=== PATIENT | male | born 1965 | race Caucasian/White ===

== ENCOUNTER 2018-06-08 10:29 | Emergency (ER) | payer OTHER, SELFPAY ==
[2018-06-08] VITALS (25 sets, daily range): BP systolic 113–125; BP diastolic 71–85; PULSE 67–88; RESP 11–26; TEMP 36.7; O2SAT 83–96
--- NOTE | 2018-06-08 10:41 | W.ED.GENAD ---
Discharge Plan Disposition Patient Disposition: AGAINST MEDICAL ADVICE Condition: Stable Discharge Details Chief Complaint: OD/Poison Clinical Impression: Opiate overdose Primary Care Provider: Salome Og ED Provider: Sharon Clark Home Meds and New Rx's Prescriptions: Continue lamotrigine [Lamictal] 25 MG tablet 25 mg PO DAILY RF: 0 gabapentin 300 MG capsule 350 mg PO BID RF: 0 carisoprodol 350 MG tablet 350 mg PO DAILY PRNRF: 0 methadone [Dolophine] 10 MG tablet 90 mg PO DAILY RF: 0 quetiapine [Seroquel] 300 MG tablet 1 tab PO HS RF: 0 venlafaxine 25 MG tablet 3 tab PO DAILY RF: 0 Discharge Instructions Instructions: Narcotic Abuse (ED) Additional Instructions: Please refrain from abusing opioid medication as you can from stopping breathing. Follow-up with your primary care doctor at the [place] within the next week. Return immediately to the emergency department any worsening or new concerning symptoms. Discharge Data Discharge Physician: Sharon Clark Medical Decision Making 52-year-old male with a history of narcotic drug use who presents for bradypnea after fentanyl overdose this morning. No report of respiratory arrest. Patient was not given Narcan per EMS. Patient was assisted with ventilation by bag valve mask. Patient was noted to have sats in the 80s which increased to 90s on nasal cannula oxygen per EMS. Patient arrived to ED drowsy but arousable and oriented x3 and able to answer questions. He remains persistently drowsy but arousable. O2 sat 88% on room air. Patient placed on 2 L nasal cannula and O2 sat 96%. No evidence of trauma. Patient able to follow commands. Remainder vitals within normal limits. Will continue to hold on Narcan at this time as respiratory rate within normal limits. Will continue to observe until more alert, will check labs, EKG and chest x-ray and give Narcan if needed. EKG notes a rate of 74, sinus, no acute ST elevation or depression, QTc 450, QRS 98. Labs and imaging reviewed and negative. Chest x-ray negative. 1220 --patient observed now for almost 2 hours, and respiratory rate on O2 sat 2 L 96%, respiratory rate ranges between 9 and 14. Patient taken off O2 and sats between 90 and 92%, respiratory rate between 9 and 12. Remainder vitals within normal limits. Will give a 0.1 mg dose of Narcan. 1310 -- Pt now awake and alert and sitting on edge of stretcher and requesting to leave. Patient appears irritated and is requesting his IV line be taken out. Discussed with patient that the risk of return of respiratory depression is possible if the Narcan wears off and we would want to observe for a little while longer but he is refusing to stay. The risks of and disability due to respiratory depression explained and patient fully understands and demonstrates capacity make decisions. AMA form signed. Patient ambulated easily out of the emergency department. His friend Jenni who is the landlord where he lives is on her way to supervisor picking crew pt. HPI General Mode of arrival: ambulatory. Date/Time Provider Initiated Documentation: 06/08/18 10:39. Limitations to Documentation: no limitations. Information obtained by: patient. HPI Narrative: Patient is a 52-year-old male with a history of previous narcotic drug use who presented for hypoventilation after snorting fentanyl this morning. Patient currently resides at a care bed and was noted by staff there to be bradypneic. EMS was called and gave patient assisted ventilation with BVM, and no Narcan was given. Patient states he snorted fentanyl this morning due to his chronic neck and back pain. He denies any acute injury. Patient denies any other drug use. Past medical history: Hypertension, hyperlipidemia, chronic neck and back pain, TBI, seizures Surgical history: Hernia repair, right fifth finger amputation Social history: Smokes tobacco, narcotic drug use, denies alcohol Medications: Unknown, followed at the [facility], will obtain list Allergies: None PCP: [facility] Related Data Home Medications Medication Instructions Recorded Confirmed carisoprodol 350 mg PO DAILY PRN 05/03/13 02/21/18 gabapentin 350 mg PO BID 05/03/13 02/21/18 lamotrigine [Lamictal] 25 mg PO DAILY 05/03/13 02/21/18 methadone [Dolophine] 90 mg PO DAILY 02/20/18 02/21/18 quetiapine [Seroquel] 1 tab PO HS 02/20/18 02/21/18 venlafaxine 3 tab PO DAILY 02/20/18 02/21/18 Allergies Allergy/AdvReac Type Severity Reaction Status Date / Time No Known Allergies Allergy Unverified 02/21/18 20:05 General Stated Complaint: OD/Poison GONZALEZ: 2 Review of Systems Review of Systems All systems reviewed & are unremarkable except as noted in HPI and below Constitutional Reports as per HPI, Denies chills and Denies fever(s) Eyes Denies blurry vision ENT Denies dizziness, Denies sore throat and Denies throat swelling Cardiovascular Denies chest pain and Denies dyspnea Respiratory Denies dyspnea Gastrointestinal Denies abdominal pain, Denies diarrhea and Denies vomiting Genitourinary Denies hematuria and Denies dysuria Musculoskeletal Denies back pain and Denies numbness Integumentary/Breasts Denies lesions and Denies rash Neurologic Denies dizziness and Denies numbness Allergic/Immunologic Denies throat swelling PFSH Social History Smoking/Tobacco Use Status: Current every day Exam Const General: cooperative and no acute distress Orientation: oriented x3 and other (drowsy but arousable) HENSD Head: normal to inspection Ears: hearing grossly normal bilaterally, external ears normal and TM's normal bilaterally General nose exam: external nose normal Face and sinus: normal facial exam Mouth: moist mucous membranes abnormal Teeth and gingiva: poor dentition Eyes General: appearance normal, both eyes and all related structures Eyelids: eyelids normal Pupils: PERRL EOM: EOM intact bilaterally Neck Neck: normal visual inspection Lymphatic: no lymphadenopathy noted Chest Chest: normal inspection of the chest Resp Effort & Inspection: normal respiratory effort and able to speak in complete sentences Auscultation: clear to auscultation bilaterally Cardio Rate: regular rate Rhythm: regular rhythm GI Inspection: normal to inspection Palpation: soft, not firm, no guarding, no hepatosplenomegaly, no masses and nontender Auscultation: normal bowel sounds Skin General skin exam: no rashes or lesions noted Neuro General: alert and awake Cognition: normal cognition Speech: speech normal Gait: normal gait Motor: muscle tone normal throughout Sensory Exam: no sensory deficits noted Extrem General: normal to inspection, full ROM, normal capillary refill, no edema and other Psych Appearance: grossly normal Mental Status: mental status grossly normal Speech and Movement: speech and movement normal Affect: normal affect Thought Process: normal Course Vital Signs Temperature 98.1 F 06/08/18 10:26 Pulse 88 06/08/18 10:26 Respiratory Rate 16 06/08/18 10:26 Blood Pressure 116/79 06/08/18 10:26 Pulse Oximetry 91 L 06/08/18 10:26 Temperature 98.1 F 06/08/18 10:26 Temperature Source Temporal Artery Scan 06/08/18 10:26 Pulse 88 06/08/18 10:26 Respiratory Rate 16 06/08/18 10:26 Respiratory Effort Non-Labored 06/08/18 10:30 Blood Pressure 116/79 06/08/18 10:26 Pulse Oximetry 91 L 06/08/18 10:26 Oxygen Delivery Method Nasal Cannula 06/08/18 10:26 Oxygen Flow Rate 6 06/08/18 10:26 Pain Level 0 06/08/18 10:26
--- NOTE | 2018-06-08 10:49 | ED.GENADUL_ITS ---
Discharge Plan Disposition Patient Disposition: AGAINST MEDICAL ADVICE Condition: Stable Discharge Details Chief Complaint: OD/Poison Clinical Impression: Opiate overdose Primary Care Provider: Salome Og ED Provider: Sharon Clark Home Meds and New Rx's Prescriptions: Continue lamotrigine [Lamictal] 25 MG tablet 25 mg PO DAILY RF: 0 gabapentin 300 MG capsule 350 mg PO BID RF: 0 carisoprodol 350 MG tablet 350 mg PO DAILY PRNRF: 0 methadone [Dolophine] 10 MG tablet 90 mg PO DAILY RF: 0 quetiapine [Seroquel] 300 MG tablet 1 tab PO HS RF: 0 venlafaxine 25 MG tablet 3 tab PO DAILY RF: 0 Discharge Instructions Instructions: Narcotic Abuse (ED) Additional Instructions: Please refrain from abusing opioid medication as you can from stopping breathing. Follow-up with your primary care doctor at the [place] within the next week. Return immediately to the emergency department any worsening or new concerning symptoms. Discharge Data Discharge Physician: Sharon Clark Medical Decision Making 52-year-old male with a history of narcotic drug use who presents for bradypnea after fentanyl overdose this morning. No report of respiratory arrest. Patient was not given Narcan per EMS. Patient was assisted with ventilation by bag valve mask. Patient was noted to have sats in the 80s which increased to 90s on nasal cannula oxygen per EMS. Patient arrived to ED drowsy but arousable and oriented x3 and able to answer questions. He remains persistently drowsy but arousable. O2 sat 88% on room air. Patient placed on 2 L nasal cannula and O2 sat 96%. No evidence of trauma. Patient able to follow commands. Remainder vitals within normal limits. Will continue to hold on Narcan at this time as respiratory rate within normal limits. Will continue to observe until more alert, will check labs, EKG and chest x-ray and give Narcan if needed. EKG notes a rate of 74, sinus, no acute ST elevation or depression, QTc 450, QRS 98. Labs and imaging reviewed and negative. Chest x-ray negative. 1220 --patient observed now for almost 2 hours, and respiratory rate on O2 sat 2 L 96%, respiratory rate ranges between 9 and 14. Patient taken off O2 and sats between 90 and 92%, respiratory rate between 9 and 12. Remainder vitals within normal limits. Will give a 0.1 mg dose of Narcan. 1310 -- Pt now awake and alert and sitting on edge of stretcher and requesting to leave. Patient appears irritated and is requesting his IV line be taken out. Discussed with patient that the risk of return of respiratory depression is possible if the Narcan wears off and we would want to observe for a little while longer but he is refusing to stay. The risks of and disability due to respiratory depression explained and patient fully understands and demonstrates capacity make decisions. AMA form signed. Patient ambulated easily out of the emergency department. His friend Jenni who is the landlord where he lives is on her way to fern picker pt. HPI General Mode of arrival: ambulatory . Date/Time Provider Initiated Documentation: 06/08/18 10:39 . Limitations to Documentation: no limitations . Information obtained by: patient . HPI Narrative: Patient is a 52-year-old male with a history of previous narcotic drug use who presented for hypoventilation after snorting fentanyl this morning. Patient currently resides at a care bed and was noted by staff there to be bradypneic. EMS was called and gave patient assisted ventilation with BVM, and no Narcan was given. Patient states he snorted fentanyl this morning due to his chronic neck and back pain. He denies any acute injury. Patient denies any other drug use. Past medical history: Hypertension, hyperlipidemia, chronic neck and back pain, TBI, seizures Surgical history: Hernia repair, right fifth finger amputation Social history: Smokes tobacco, narcotic drug use, denies alcohol Medications: Unknown, followed at the [facility], will obtain list Allergies: None PCP: [place] christy seminole Related Data Home Medications Medication Instructions Recorded Confirmed carisoprodol 350 mg PO DAILY PRN 05/03/13 02/21/18 gabapentin 350 mg PO BID 05/03/13 02/21/18 lamotrigine [Lamictal] 25 mg PO DAILY 05/03/13 02/21/18 methadone [Dolophine] 90 mg PO DAILY 02/20/18 02/21/18 quetiapine [Seroquel] 1 tab PO HS 02/20/18 02/21/18 venlafaxine 3 tab PO DAILY 02/20/18 02/21/18 Allergies Allergy/AdvReac Type Severity Reaction Status Date / Time No Known Allergies Allergy Unverified 02/21/18 20:05 General Stated Complaint: OD/Poison GONZALEZ: 2 Review of Systems Review of Systems All systems reviewed & are unremarkable except as noted in HPI and below Constitutional Reports as per HPI, Denies chills and Denies fever(s) Eyes Denies blurry vision ENT Denies dizziness, Denies sore throat and Denies throat swelling Cardiovascular Denies chest pain and Denies dyspnea Respiratory Denies dyspnea Gastrointestinal Denies abdominal pain, Denies diarrhea and Denies vomiting Genitourinary Denies hematuria and Denies dysuria Musculoskeletal Denies back pain and Denies numbness Integumentary/Breasts Denies lesions and Denies rash Neurologic Denies dizziness and Denies numbness Allergic/Immunologic Denies throat swelling PFSH Social History Smoking/Tobacco Use Status: Current every day Exam Const General: cooperative and no acute distress Orientation: oriented x3 and other (drowsy but arousable) HENHI Head: normal to inspection Ears: hearing grossly normal bilaterally, external ears normal and TM's normal bilaterally General nose exam: external nose normal Face and sinus: normal facial exam Mouth: moist mucous membranes abnormal Teeth and gingiva: poor dentition Eyes General: appearance normal, both eyes and all related structures Eyelids: eyelids normal Pupils: PERRL EOM: EOM intact bilaterally Neck Neck: normal visual inspection Lymphatic: no lymphadenopathy noted Chest Chest: normal inspection of the chest Resp Effort & Inspection: normal respiratory effort and able to speak in complete sentences Auscultation: clear to auscultation bilaterally Cardio Rate: regular rate Rhythm: regular rhythm GI Inspection: normal to inspection Palpation: soft, not firm, no guarding, no hepatosplenomegaly, no masses and nontender Auscultation: normal bowel sounds Skin General skin exam: no rashes or lesions noted Neuro General: alert and awake Cognition: normal cognition Speech: speech normal Gait: normal gait Motor: muscle tone normal throughout Sensory Exam: no sensory deficits noted Extrem General: normal to inspection, full ROM, normal capillary refill, no edema and other Psych Appearance: grossly normal Mental Status: mental status grossly normal Speech and Movement: speech and movement normal Affect: normal affect Thought Process: normal Course Vital Signs Temperature 98.1 F 06/08/18 10:26 Pulse 88 06/08/18 10:26 Respiratory Rate 16 06/08/18 10:26 Blood Pressure 116/79 06/08/18 10:26 Pulse Oximetry 91 L 06/08/18 10:26 Temperature 98.1 F 06/08/18 10:26 Temperature Source Temporal Artery Scan 06/08/18 10:26 Pulse 88 06/08/18 10:26 Respiratory Rate 16 06/08/18 10:26 Respiratory Effort Non-Labored 06/08/18 10:30 Blood Pressure 116/79 06/08/18 10:26 Pulse Oximetry 91 L 06/08/18 10:26 Oxygen Delivery Method Nasal Cannula 06/08/18 10:26 Oxygen Flow Rate 6 06/08/18 10:26 Pain Level 0 06/08/18 10:26
[2018-06-08 10:52] LABS: Abs Immature Grans 0.01 k/cumm (0.0-0.09); Absolute Basophil Count 0.02 k/cumm (0.0-0.2); Absolute Lymphocyte Count 1.13 k/cumm (1.2-3.4); Absolute Monocyte Count 0.51 k/cumm (0.11-0.7); Absolute Neutrophil Count 4.64 k/cumm (1.2-6.7); Basophils % 0.3; Eosinophils % 3.1; HCT 44.1 % (40.0-50.0); HGB 14.8 g/dL (13.5-17.5); Immature Grans % 0.2; Lymphocytes % 17.4; Mean Corp. HGB Concentration 33.6 g/dL (32.0-36.0); Mean Corpuscular Hemoglobin 30.4 pg (27.0-33.0); Mean Corpuscular Volume 90.6 fL (80-95); Mean Platelet Volume 9.7 fL (8.0-11.0); Monocytes % 7.8; Neutrophils % 71.2; Platelet Count 207 x1000/uL (130-400); RBC 4.87 m/cumm (4.50-6.00); RBC Distribution Width 14.8 % (11.8-14.1); White Blood Cell Count 6.51 k/cumm (4.4-10.8)
--- NOTE | 2018-06-08 11:08 | DI.RAD_ITS ---
SYMPTOM/DIAGNOSIS: HYPOXIA, S/P FENTANYL OVERDOSE PORTABLE AP CHEST: The lungs are well expanded. There is no pleural effusion. The heart is within normal limits in size. There is mild unfolding of the aorta. The tracheal air column and mediastinum are intact. SUMMARY: No evidence of acute cardiopulmonary disease.
[2018-06-08 11:10] LABS: ALT 16 U/L (12-78); AST 14 U/L (15-37); Albumin 3.3 g/dL (3.4-5.0); Alkaline Phosphatase 96 U/L (46-116); Anion Gap 5.6 mmol/L (3-11); BUN 11 mg/dL (7-18); Bilirubin, Total 0.2 mg/dL (0.2-1.0); CO2 29.4 mmol/L (21.0-32.0); CREATININE 0.77 mg/dL (0.70-1.30); Calcium 8.8 mg/dL (8.5-10.1); Chloride 101 mmol/L (98-107); Glucose 91 mg/dL (70-100); Magnesium 2.1 mg/dL (1.8-2.4); Potassium 4.2 mmol/L (3.5-5.1); Sodium 136 mmol/L (136-145); Total Protein 6.9 g/dL (6.4-8.2)
[2018-06-08 11:23] LABS: Troponin I < 0.02 ng/mL (0.00-0.06)
[2018-06-08] MEDS: Normal Saline 1,000 ML 1000 ML IV (12:12)
[2018-06-08] MEDS: Naloxone 0.4 MG/ML VIAL 0.1 MG IVP (13:01)
== END 2018-06-08 13:19 | disposition left against medical advice (07) ==
PROVIDERS: Emergency Provider Physician Assistant; PCP Nurse Practitioner
DX: T40.2X1A Poisoning by other opioids, accidental (unintentional), initial encounter (principal); Z53.29 Procedure and treatment not carried out because of patient's decision for other reasons
CPT/HCPCS: 36415; 80053; 93005; 96374; 99285; 71045; 83735; 84484; 85025; 93010; J2310

== ENCOUNTER 2018-10-13 07:31 | Emergency (ER) | payer OTHER, SELFPAY ==
[2018-10-13] VITALS (15 sets, daily range): BP systolic 118–160; BP diastolic 77–99; PULSE 73–91; RESP 11–31; TEMP 36.6; O2SAT 88–96
--- NOTE | 2018-10-13 07:37 | AC.ASSESS ---
pt picked up by ambulance at approximately 0710 found unresponsive but breathing. conciseness returned after 1 mg iv narcan
--- NOTE | 2018-10-13 08:27 | ED.GENADUL_ITS ---
Discharge Plan Disposition Patient Disposition: AGAINST MEDICAL ADVICE Condition: Stable Discharge Details Chief Complaint: OD/Poison Clinical Impression: Accidental fentanyl overdose Reason For Visit: DEREK Primary Care Provider: JULIA GARCIA ED Provider: Sharon Clark Home Meds and New Rx's Prescriptions: Continued lamotrigine [Lamictal] 25 MG tablet 25 mg PO DAILY RF: 0 gabapentin 300 MG capsule 350 mg PO BID RF: 0 carisoprodol 350 MG tablet 350 mg PO DAILY PRNRF: 0 methadone [Dolophine] 10 MG tablet 90 mg PO DAILY RF: 0 quetiapine [Seroquel] 300 MG tablet 1 tab PO HS RF: 0 venlafaxine 25 MG tablet 3 tab PO DAILY RF: 0 Discharge Instructions Instructions: Opioid Overdose (ED) Additional Instructions: Do not abuse opioids as there is a risk of and disability with abuse and overuse. Return immediately to the emergency department any worsening or new concerning symptoms. Discharge Data Discharge Date/Time-TO BE ENTERED AT DEPARTURE: 10/13/18 09:45 Discharge Physician: Sharon Clark Medical Decision Making 53-year-old male with a history of opiate abuse on methadone who presents status post fentanyl overdose this morning. He was found unresponsive but breathing and was given a dose of IV Narcan and was aroused and alert. Upon my assessment, patient is awake alert and oriented x3. He is hemodynamically stable. EKG notes a rate of 84 and sinus with no acute ST findings. Patient is requesting the number for his landlord to call her to come pick him up. Will obtain basic labs and a portable chest x-ray. Discussed with patient that we would observe for continued respiratory depression on fentanyl as Narcan wears off. Labs and imaging reviewed and unremarkable. Normal white blood cell count and electrolytes. Glucose 69. Patient was given food and drink. Troponin negative. Chest x-ray negative. Patient is requesting to leave. The risks of and disability due to respiratory depression were explained to patient fully understand this and requested to leave. He demonstrates capacity make decisions. AMA form signed. [facility] He is instructed to return here with any concerns. Medical Records Medical records reviewed: Yes I reviewed the patient's medical records. Lab Data Lab results reviewed: Yes I reviewed the patient's lab results. Laboratory Tests Range/Units 10/13/18 10/13/18 08:20 08:20 WBC (4.4-10.8) k/cumm 7.89 RBC (4.50-6.00) m/cumm 4.73 Hgb (13.5-17.5) g/dL 14.3 Hct (40.0-50.0) % 43.2 MCV (80-95) fL 91.3 MCH (27.0-33.0) pg 30.2 MCHC (32.0-36.0) g/dL 33.1 RDW (11.8-14.1) % 15.1 H Plt Count (130-400) x1000/uL 253 MPV (8.0-11.0) fL 9.1 Immature Gran % 0.1 Neutrophils % 72.4 Lymphocytes % 16.7 Monocytes % 6.7 Eosinophils % 3.7 Basophils % 0.4 Absolute Neutrophils (1.2-6.7) k/cumm 5.71 Absolute Lymphocytes (1.2-3.4) k/cumm 1.32 Absolute Monocytes (0.11-0.7) k/cumm 0.53 Absolute Eosinophils (0.0-0.7) k/cumm 0.29 Absolute Basophils (0.0-0.2) k/cumm 0.03 Sodium (136-145) mmol/L 140 Potassium (3.5-5.1) mmol/L 4.3 Chloride (98-107) mmol/L 104 Carbon Dioxide (21.0-32.0) mmol/L 29.5 Anion Gap (3-11) mmol/L 6.5 BUN (7-18) mg/dL 9 Creatinine (0.70-1.30) mg/dL 0.64 L Estimated GFR/1.73 m2 (mL/min/1.73m2) >= 60.00 Glucose (70-100) mg/dL 69 L Calcium (8.5-10.1) mg/dL 9.1 Magnesium (1.8-2.4) mg/dL 2.4 Total Bilirubin (0.2-1.0) mg/dL 0.2 AST (15-37) U/L 22 ALT (12-78) U/L 11 L Alkaline Phosphatase (46-116) U/L 91 Troponin I (0.00-0.06) ng/mL < 0.02 Total Protein (6.4-8.2) g/dL 7.1 Albumin (3.4-5.0) g/dL 3.2 L ECG Data Attestation: I personally reviewed and interpreted this ECG (s) as follows: Interpretation: Rate of 84, sinus, no acute ST elevation or depression. T wave inversion in lead III. QTc 454. QRS 100. HPI General Mode of arrival: ambulatory . Date/Time Provider Initiated Documentation: 10/13/18 08:14 . Limitations to Documentation: no limitations . Information obtained by: patient . HPI Narrative: Pt is a 53yo M w/ a h/o opiate abuse, on methadone who presents s/p fentanyl overdose this morning. He states he snorted the fentanyl. He was found unresponsive but breathing. He was given 1 dose of narcan IV per EMS and is now awake and alert. He states he was supposed to be admitted to psych/rehab at the [place] yesterday. Related Data Home Medications Medication Instructions Recorded Confirmed carisoprodol 350 mg PO DAILY PRN 05/03/13 02/21/18 gabapentin 350 mg PO BID 05/03/13 02/21/18 lamotrigine [Lamictal] 25 mg PO DAILY 05/03/13 02/21/18 methadone [Dolophine] 90 mg PO DAILY 02/20/18 02/21/18 quetiapine [Seroquel] 1 tab PO HS 02/20/18 02/21/18 venlafaxine 3 tab PO DAILY 02/20/18 02/21/18 Allergies Allergy/AdvReac Type Severity Reaction Status Date / Time No Known Allergies Allergy Unverified 02/21/18 20:05 General Stated Complaint: OD/Poison GONZALEZ: 2 Review of Systems Review of Systems All systems reviewed & are unremarkable except as noted in HPI and below Constitutional Reports as per HPI, Denies chills and Denies fever(s) Eyes Denies blurry vision ENT Denies dizziness, Denies sore throat and Denies throat swelling Cardiovascular Denies chest pain and Denies dyspnea Respiratory Denies cough and Denies dyspnea Gastrointestinal Denies abdominal pain, Denies diarrhea and Denies vomiting Genitourinary Denies hematuria and Denies dysuria Musculoskeletal Denies back pain and Denies numbness Integumentary/Breasts Denies lesions and Denies rash Neurologic Denies dizziness, Denies focal weakness and Denies numbness Allergic/Immunologic Denies throat swelling [facility] Medical History Hyperlipemia (Acute) TBI (traumatic brain injury) (Acute) COPD (chronic obstructive pulmonary disease) (Chronic) HTN (hypertension) (Chronic) Surgical History History of hernia repair (Chronic) Social History Smoking and Tabacco status: Current every day alcohol intake: never substance use type: heroin Exam Const General: cooperative, healthy appearing and no acute distress HENMT Head: normal to inspection Face and sinus: normal facial exam Eyes General: appearance normal, both eyes and all related structures Pupils: PERRL EOM: EOM intact bilaterally Neck Neck: normal visual inspection and No submandibular swelling Lymphatic: no lymphadenopathy noted Chest Chest: normal inspection of the chest and no tenderness Resp Effort & Inspection: normal respiratory effort and able to speak in complete sentences Auscultation: rhonchi Cardio Rate: regular rate Rhythm: regular rhythm GI Inspection: normal to inspection Palpation: soft, not firm, not rigid and nontender Auscultation: normal bowel sounds Skin General skin exam: no rashes or lesions noted Neuro General: alert, awake and oriented x3 Cognition: normal cognition Speech: speech normal Motor: muscle tone normal throughout Sensory Exam: no sensory deficits noted Extrem General: normal to inspection, full ROM, normal capillary refill, no calf tenderness bilaterally and edema (1+ pitting edema) Laterality: bilateral Psych Appearance: grossly normal Mental Status: mental status grossly normal Speech and Movement: speech and movement normal Affect: normal affect Course Vital Signs Temperature 97.9 F 10/13/18 07:41 Pulse 87 10/13/18 07:41 Respiratory Rate 15 10/13/18 07:41 Blood Pressure 160/99 H 10/13/18 07:41 Pulse Oximetry 96 10/13/18 07:41 Temperature 97.9 F 10/13/18 07:41 Temperature Source Tympanic 10/13/18 07:41 Pulse 87 10/13/18 07:41 Respiratory Rate 15 10/13/18 07:44 Respiratory Effort 10/13/18 07:44 Respiratory Depth Normal 10/13/18 07:44 Respiratory Pattern Normal 10/13/18 07:44 Blood Pressure 160/99 H 10/13/18 07:41 Blood Pressure Position Sitting 10/13/18 07:41 Pulse Oximetry 96 10/13/18 07:41 Oxygen Delivery Method Room Air 10/13/18 07:41 Oxygen Flow Rate 0 10/13/18 07:41 Pain Level 0 10/13/18 07:41
[2018-10-13 08:35] LABS: Abs Immature Grans 0.01 k/cumm (0.0-0.09); Absolute Basophil Count 0.03 k/cumm (0.0-0.2); Absolute Eosinophil Count 0.29 k/cumm (0.0-0.7); Absolute Lymphocyte Count 1.32 k/cumm (1.2-3.4); Absolute Monocyte Count 0.53 k/cumm (0.11-0.7); Absolute Neutrophil Count 5.71 k/cumm (1.2-6.7); Basophils % 0.4; Eosinophils % 3.7; HCT 43.2 % (40.0-50.0); HGB 14.3 g/dL (13.5-17.5); Immature Grans % 0.1; Lymphocytes % 16.7; Mean Corp. HGB Concentration 33.1 g/dL (32.0-36.0); Mean Corpuscular Hemoglobin 30.2 pg (27.0-33.0); Mean Corpuscular Volume 91.3 fL (80-95); Mean Platelet Volume 9.1 fL (8.0-11.0); Monocytes % 6.7; Neutrophils % 72.4; Platelet Count 253 x1000/uL (130-400); RBC 4.73 m/cumm (4.50-6.00); RBC Distribution Width 15.1 % (11.8-14.1); White Blood Cell Count 7.89 k/cumm (4.4-10.8)
--- NOTE | 2018-10-13 08:49 | DI.RAD_ITS ---
SYMPTOM/DIAGNOSIS: UNRESPONSIVE, S/P FENTANYL PORTABLE AP CHEST: Comparison is made with 06/08/18. There is poor inspiration. Heart size and pulmonary vasculature are within normal limits. No focal infiltrates, effusions or pneumothoraces are identified. The bones appear intact. IMPRESSION: No acute pulmonary process.
[2018-10-13 09:05] LABS: ALT 11 U/L (12-78); AST 22 U/L (15-37); Albumin 3.2 g/dL (3.4-5.0); Alkaline Phosphatase 91 U/L (46-116); Anion Gap 6.5 mmol/L (3-11); BUN 9 mg/dL (7-18); Bilirubin, Total 0.2 mg/dL (0.2-1.0); CO2 29.5 mmol/L (21.0-32.0); CREATININE 0.64 mg/dL (0.70-1.30); Calcium 9.1 mg/dL (8.5-10.1); Chloride 104 mmol/L (98-107); Glucose 69 mg/dL (70-100); Magnesium 2.4 mg/dL (1.8-2.4); Potassium 4.3 mmol/L (3.5-5.1); Sodium 140 mmol/L (136-145); Total Protein 7.1 g/dL (6.4-8.2)
[2018-10-13 09:07] LABS: Troponin I < 0.02 ng/mL (0.00-0.06)
== END 2018-10-13 09:45 | disposition left against medical advice (07) ==
PROVIDERS: Emergency Provider Physician Assistant; PCP Internal Medicine
DX: T40.4X1A Poisoning by other synthetic narcotics, accidental (unintentional), initial encounter (principal); F11.20 Opioid dependence, uncomplicated; Z53.29 Procedure and treatment not carried out because of patient's decision for other reasons; J44.9 Chronic obstructive pulmonary disease, unspecified; F17.210 Nicotine dependence, cigarettes, uncomplicated; I10 Essential (primary) hypertension
CPT/HCPCS: 36415; 80053; 93005; 99285; 71045; 83735; 84484; 85025; 93010; 99284

== ENCOUNTER 2021-11-29 07:53 | Emergency (ER) | payer OTHER, SELFPAY ==
[2021-11-29] VITALS (45 sets, daily range): BP systolic 102–147; BP diastolic 61–90; PULSE 83–123; RESP 10–27; TEMP 36.7; O2SAT 87–100
[2021-11-29] MEDS: Naloxone 0.4 MG/ML VIAL IVP ×4 (07:53→11:03)
--- NOTE | 2021-11-29 08:00 | DI.CT_ITS ---
Exam(s) CT HEAD WO EXAM: CT HEAD WO CLINICAL HISTORY: unresponsive episode, r/o acute cva. TECHNIQUE: Imaging Protocol: Axial computed tomography images with coronal and sagittal reformatted images were created and reviewed COMPARISON: CT HEAD WITHOUT CONTRAST from 03/21/2011 FINDINGS: Moderate generalized cerebral atrophy noted, I in usual in this age group.. No evidence of acute intracranial hemorrhage, mass effect, or midline shift. The orbital structures are unremarkable. Probable old nasal fracture. The temporal bone structures appear intact. Calvarium: Normal. Visualized Paranasal sinuses/Mastoids: Mucoperiosteal thickening noted in right maxillary antrum, non specific.. IMPRESSION: No evidence of acute intracranial process.. RADIATION DOSE DELIVERED: 803.71mGy.cm Total DLP 803.71mGy.cm Total DLP !Error CTDIvol DATA REPOSITORY: All CT scans at this facility are submitted to the National Radiology Data Registry (NRDR) Dose Index Registry (DIR) with the [employer] ([employer]). RADIATION OPTIMIZATION: All CT scans at this facility use at least one of these dose optimization te chniques: automated exposure control; mA and/or kV adjustment per patient size (includes targeted exa ms where dose is matched to clinical indication); or iterative reconstruction.
--- NOTE | 2021-11-29 08:00 | DI.RAD_ITS ---
Exam(s) XR PORTABLE CHEST AP EXAM: XR PORTABLE CHEST AP CLINICAL HISTORY: unresponsive episode, r/o acute disease TECHNIQUE: COMPARISON: CR XR PORTABLE CHEST AP from 10/13/2018 FINDINGS: Portable upright chest at 0810 hours. Heart is not enlarged. There are new areas of patchy increase d radiodensity in the right lower lung field since prior examination of October 2018, findings are sugg estive of acute multifocal pneumonia. Left lung and right upper lung field are generally clear. No gross pleural effusion. IMPRESSION: The appearance is suggestive of multifocal right-sided pneumonia. Appropriate follow-up films reques wade. RADIATION DOSE DELIVERED: Total DLP
--- NOTE | 2021-11-29 08:00 | RT.EKG_ITS ---
APPROVED REPORT Exam: Resting ECG Reason for Exam: altered mental status Patient Location: E HR:112 bpm ECG Measurements Heart Rate 112 AXIS RI 172 P 41 QRSd 91 QRS -76 QT 314 T 35 QTc 429 Conclusion Sinus tachycardia...rate> 99 LAD, consider left anterior fascicular block...axis(240,-40), S>R II III aVF. Sinus. No STEMI. I have reviewed and interpreted ECG and agree with software generated interpretation.
--- NOTE | 2021-11-29 08:03 | ED.GENADUL_ITS ---
Discharge Plan Disposition Patient Disposition: AGAINST MEDICAL ADVICE Condition: Fair Discharge Details Clinical Impression: COVID-19, Aspiration pneumonia, Hypoxia, Opiate overdose Primary Care Provider: Ole Sharma ED Provider: Sharon Clark Home Meds and New Rx's Prescriptions: New levofloxacin 750 mg tablet 750 mg PO DAILY 4 Days Qty: 4 0RF benzonatate 100 mg capsule 100 mg PO TID PRN (Reason: cough) Qty: 10 0RF prednisone 50 mg tablet 50 mg PO DAILY 5 Days Qty: 5 0RF Paxlovid (EUA) 150 mg x 2- 100 mg tablet See Rx Instructions .ROUTE .COMPLEX Qty: 6 0RF Rx Instructions: orally per package directions Continued lamotrigine [Lamictal] 25 MG tablet 25 mg PO DAILY 0RF gabapentin 300 MG capsule 350 mg PO BID 0RF carisoprodol 350 MG tablet 350 mg PO DAILY PRN0RF Label Comments: pt states he does not take methadone [Dolophine] 10 MG tablet 90 mg PO DAILY 0RF quetiapine [Seroquel] 300 MG tablet 1 tab PO HS 0RF venlafaxine 25 MG tablet 3 tab PO DAILY 0RF Discharge Instructions Additional Instructions: Your lab work and imaging today revealed that you are positive for COVID-19. You were also found to have a pneumonia on your chest x-ray. Drink plenty of fluids and get plenty of rest. You are being sent home with prescriptions for antibiotic for your pneumonia, antiviral medication for your COVID 19 in addition to an albuterol inhaler, steroids and cough medication. You were also given Narcan to use as needed and directed for opiate overdose. Follow-up with your primary care doctor in 1 week. Return to the emergency department with any worsening or new concerning symptoms. 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 It was reported that the [facility] emergency detail driver picked patient up at the methadone clinic and he was unresponsive in the back of the car and brought him to the front ER doors. Patient given 1 dose of intranasal Narcan with response outside the ED. Blood pressure hypertensive at 141/87. Heart rate 110s. Patient noted to be drowsy again in wheelchair when brought back to the room. He was given another dose of intranasal Narcan and is now awake and alert. Oxygen saturation 87% on room air. Patient placed on 3 L and oxygen saturation 93%. No evidence of trauma on exam. He is alert and oriented x3. He is answering all questions. No focal deficits. Suspect opiate overdose. He denies any other drug use this morning but unclear if the [facility] clinic is open on a Tuesday. Will obtain screening labs, chest x-ray, CT head and continue to monitor. 909 --labs and imaging reviewed. White blood cell count normal. ABG notes a normal pH of 7.4 and a PCO2 of 35 with a PO2 of 53. Normal electrolytes. Glucose 255 but with a normal bicarb and anion gap. Troponin negative. Chest x-ray notes a right lung base pneumonia, possibly aspiration pneumonia. Concerned about compliance. A dose of Levaquin ordered. He is on Seroquel and methadone which can cause QT prolongation with Levaquin. EKG reveals a normal QTC of 429 so will continue with levaquin. Patient now endorses that he took 5 g of fentanyl off the street this morning. Patient is now off O2 and saturations 98% on room air. His heart rate and blood pressure within normal limits. We will continue to monitor until able to ambulate and eat. 954 --Pt noted to be more drowsy, oxygen saturations 88% on RA, will place back on nasal cannula and give another dose of narcan. Found to have scattered wheezing with rhonchi. We will give a DuoNeb and continue to wean off O2. 1120 --patient stating he wants to leave. His oxygen saturation is 92% on 3 L. Discussed with patient that he has aspiration pneumonia and would be advisable to stay for admission for supplemental oxygen and antibiotics and discussed that he may need repeated doses of Narcan due to prolonged effects of fentanyl. Patient is refusing to stay. He demonstrates capacity to make decisions. AMA form signed. COVID-positive. Patient informed of result. He is stating that he has received 3 COVID vaccines. He is stating that he wants to leave. We will send with prescription for Levaquin, albuterol inhaler, and cough medication and also give a prescription for Paxlovid and narcan. Patient advised that he is recommended to return here immediately with any worsening symptoms. Medical Records Medical records reviewed: Yes I reviewed the patient's medical records. Imaging Data Radiologic Study: Radiologist's impression: XR Chest Exam date and time: 11/29/2021 7:57 AM Age: 56 years old Clinical indication: Other: Overdose, unresponsive TECHNIQUE: Imaging protocol: XR of the chest. Views: 1 view. COMPARISON: CR XR PORTABLE CHEST AP 10/13/2018 8:36 AM FINDINGS: Lungs: Patchy airspace opacities in the right lung base. Subtle linear opacity in the left lung base likely represents atelectasis. Pleural spaces: Fluid present in the minor fissure. Heart/Mediastinum: Unremarkable. No cardiomegaly. Bones/joints: Unremarkable. IMPRESSION: Patchy airspace opacities in the right lung base, consistent with pneumonia in the correct clinical setting. Aspiration pneumonia is a consideration as well. CT Head Without Contrast Exam date and time: 11/29/2021 8:18 AM Age: 56 years old Clinical indication: Other: Unresponsive episode, R/O CVA TECHNIQUE: Imaging protocol: Computed tomography of the head without contrast. Radiation optimization: All CT scans at this facility use at least one of these dose optimization techniques: automated exposure control; mA and/or kV adjustment per patient size (includes targeted exams where dose is matched to clinical indication); or iterative reconstruction. COMPARISON: No relevant prior studies available. FINDINGS: Brain: Normal. No hemorrhage. Unremarkable white matter. No mass effect. Cerebral ventricles: No ventriculomegaly. Paranasal sinuses: Visualized sinuses are unremarkable. No fluid levels. Mastoid air cells: Visualized mastoid air cells are well aerated. Bones/joints: Abnormal angulation of the nasal bone which may represent a fracture, age indeterminate. Soft tissues: Unremarkable. IMPRESSION: 1. No evidence of an acute intracranial process. 2. Nasal bone fracture, age indeterminate. Lab Data Lab results reviewed: Yes I reviewed the patient's lab results. Labs: Laboratory Tests Range/Units 11/29/21 11/29/21 11/29/21 08:00 08:00 08:35 WBC (4.4-10.8) 10^3/uL 10.28 RBC (4.36-5.78) 10^6/uL 5.17 Hgb (13.5-17.5) g/dL 15.2 Hct (40.0-50.0) % 47.2 MCV (80-95) fL 91.3 MCH (27.0-33.0) pg 29.4 MCHC (32.0-36.0) % 32.2 RDW (11.8-14.1) % 16.1 H Plt Count (130-400) 10^3/uL 113 L MPV (8.0-11.0) fL 10.7 Immature Gran % 0.4 Neutrophils % 83.1 Lymphocytes % 12.2 Monocytes % 3.8 Eosinophils % 0.3 Basophils % 0.2 Nucleated RBC % (0.0-0.3) % 0.0 Absolute Neutrophils (1.2-6.7) 10^3/uL 8.55 H Absolute Lymphocytes (1.2-3.4) 10^3/uL 1.25 Absolute Monocytes (0.1-0.8) 10^3/uL 0.39 Absolute Eosinophils (0.0-0.7) 10^3/uL 0.03 Absolute Basophils (0.0-0.2) 10^3/uL 0.02 ABG Sample Site Right Radial ABG pH (7.35-7.45) 7.43 ABG pCO2 (35-45) mmHg 36 ABG pO2 (80-105) mmHg 53 L ABG HCO3 (22-26) mmol/L 24 ABG Total CO2 (23-27) mmol/L 21 L ABG O2 Saturation (95-98) % 91 L ABG Base Excess (-2-3) mmol/L 0 Oxygen Liter Flow L 2 Sodium (136-145) mmol/L 135 L Potassium (3.5-5.1) mmol/L 3.7 Chloride (98-107) mmol/L 100 Carbon Dioxide (21.0-32.0) mmol/L 29.5 Anion Gap (3-11) mmol/L 5.5 BUN (7-18) mg/dL 7 Creatinine (0.70-1.30) mg/dL 0.8 Estimated GFR/1.73 m2 (mL/min/1.73m2) >= 60.00 Glucose (74-106) mg/dL 255 H Calcium (8.5-10.1) mg/dL 7.9 L Magnesium (1.8-2.4) mg/dL 2.0 Total Bilirubin (0.2-1.0) mg/dL 1.0 AST (15-37) U/L 34 ALT (16-63) U/L 35 Alkaline Phosphatase (46-116) U/L 280 H Troponin I (<or=60) ng/L < 50 Total Protein (6.4-8.2) g/dL 6.6 Albumin (3.4-5.0) g/dL 2.7 L ECG Data Attestation: I personally reviewed and interpreted this ECG (s) as follows: Interpretation: Rate of 112, sinus, no STEMI. HPI General Mode of arrival: ambulatory . Date/Time Provider Initiated Documentation: 11/29/21 08:03 . Limitations to Documentation: no limitations . Information obtained by: patient . HPI Narrative: Patient is a 56-year-old male with a history of COPD, hypertension, TBI, former heroin use currently on methadone presented at the ED front doors with [facility] as an unresponsive patient . Patient was given Narcan in the parking lot and then became more alert. Patient states he received 185 mg of methadone this morning. It was reported that patient was picked up by [facility] at the methadone clinic. Patient denies taking any other drugs. He denies alcohol use. Patient denies any injury or pain. Related Data Home Medications Medication Instructions Recorded Confirmed carisoprodol 350 mg tablet 350 mg PO DAILY PRN 05/03/13 02/21/18 gabapentin 300 mg capsule 350 mg PO BID 05/03/13 02/21/18 lamotrigine 25 mg tablet (Lamictal) 25 mg PO DAILY 05/03/13 02/21/18 methadone 10 mg tablet (Dolophine) 90 mg PO DAILY 02/20/18 02/21/18 quetiapine 300 mg tablet (Seroquel) 1 tab PO HS 02/20/18 02/21/18 venlafaxine 25 mg tablet 3 tab PO DAILY 02/20/18 02/21/18 benzonatate 100 mg capsule 100 mg PO TID PRN #10 cap 11/29/21 levofloxacin 750 mg tablet 750 mg PO DAILY 4 Days #4 tab 11/29/21 nirmatrelvir 150 mg x 2-ritonavir See Rx Instructions .ROUTE 11/29/21 100 mg tablet (EUA) (Paxlovid .COMPLEX #6 tab (EUA)) prednisone 50 mg tablet 50 mg PO DAILY 5 Days #5 tab 11/29/21 Previous Rx's Medication Instructions Recorded benzonatate 100 mg capsule 100 mg PO TID PRN #10 cap 11/29/21 levofloxacin 750 mg tablet 750 mg PO DAILY 4 Days #4 tab 11/29/21 nirmatrelvir 150 mg x 2-ritonavir See Rx Instructions .ROUTE 11/29/21 100 mg tablet (EUA) (Paxlovid .COMPLEX #6 tab (EUA)) prednisone 50 mg tablet 50 mg PO DAILY 5 Days #5 tab 11/29/21 Allergies Allergy/AdvReac Type Severity Reaction Status Date / Time No Known Allergies Allergy Unverified 02/21/18 20:05 General Stated Complaint: OD/Poison GONZALEZ: 2 Review of Systems All systems reviewed & are unremarkable except as noted in HPI and below Constitutional Constitutional: Reports as per HPI, Denies chills, Denies excessive sweating, Denies fatigue and Denies fever(s) Eyes Eyes: Denies blurry vision ENT Ears, Nose, Mouth, and Throat: Denies dizziness, Denies sore throat and Denies throat swelling Cardiovascular Cardiovascular: Denies chest pain and Denies dyspnea Respiratory Respiratory: Denies cough and Denies dyspnea Gastrointestinal Gastrointestinal: Denies abdominal pain, Denies diarrhea and Denies vomiting Genitourinary Genitourinary: Denies hematuria and Denies dysuria Musculoskeletal Musculoskeletal: Denies back pain and Denies numbness Integumentary/Breasts Skin/Breast: Denies lesions and Denies rash Neurologic Neurologic: Denies behavioral changes, Denies confusion, Denies dizziness, Denies localized weakness and Denies numbness Psychiatric Psychiatric: Denies behavioral changes, Denies confusion and Denies depression Endocrine Endocrine: Denies excessive sweating and Denies fatigue Hematologic/Lymphatic Hematologic/Lymphatic: Denies easy bruising and Denies lymphadenopathy Allergic/Immunologic Allergic/Immunologic: Denies throat swelling PFSH All Active Problems (Updated 11/29/21 @ 11:41 by Sharon Clark DO) COVID-19 (Acute) Aspiration pneumonia (Acute) Hypoxia (Acute) Opiate overdose (Acute) Small bowel obstruction (Acute) Hypokalemia (Acute) Drug abuse and dependence (Acute) Opioid withdrawal (Acute) Medical History (Updated 11/29/21 @ 11:41 by Sharon Clark DO) COPD (chronic obstructive pulmonary disease) HTN (hypertension) Hyperlipemia TBI (traumatic brain injury) Surgical History (Updated 10/13/18 @ 08:26 by Sharon Calrk DO) History of hernia repair Social History (Updated 10/13/18 @ 08:28 by Sharon Clark DO) Smoking/Tobacco Use Status: Current every day Tobacco Type: cigarettes Years smoked: 42 Smoking risk assessment performed?: Yes Alcohol Intake: never Drug use: Daily Substance use type: heroin Details: No longer using Heroin, Uses Fentynal every few months Do you feel safe at home: Yes Do you feel safe in your relationship?: Yes Exam Const General: cooperative Orientation: alert, awake and oriented x3 HENMT Head: normal to inspection Ears: hearing grossly normal bilaterally and external ears normal General nose exam: external nose normal Face and sinus: normal facial exam Mouth: oral mucosae normal and moist mucous membranes Teeth and gingiva: dentition normal Throat: posterior oropharynx normal Eyes General: appearance normal, both eyes and all related structures Eyelids: eyelids normal Pupils: PERRL EOM: EOM intact bilaterally Neck Neck: normal visual inspection Lymphatic: no lymphadenopathy noted Chest Chest: normal inspection of the chest Resp Effort & Inspection: normal respiratory effort and able to speak in complete sentences Auscultation: clear to auscultation bilaterally Cardio Rate: tachycardic Rhythm: regular rhythm GI Inspection: normal to inspection Palpation: soft, not firm, no guarding, no hepatosplenomegaly, no masses and nontender Auscultation: normal bowel sounds Back/Spine/Pelvis Thoracic/Lumbar Spine: thoracic and lumbar spine normal to inspection Skin General skin exam: no rashes or lesions noted Neuro General: patient alert and patient awake Cognition: normal cognition Speech: speech normal Gait: normal gait Motor: muscle tone normal throughout Sensory Exam: no sensory deficits noted Extrem General: normal to inspection, full ROM, capillary refill normal and no edema Psych Appearance: grossly normal Mental Status: mental status grossly normal Speech and Movement: speech and movement normal Affect: normal affect Thought Process: normal Critical Care Time Critical Care Time Critical Care Time: Yes Total Critical Care Time: 30 Attestation: I spent 30 minutes of critical care time with this patient. This does not include time spent on separately reported billable procedures.
[2021-11-29 08:15] LABS: Abs Immature Grans 0.04 10^3/uL (0.0-0.06); Absolute Basophil Count 0.02 10^3/uL (0.0-0.2); Absolute Eosinophil Count 0.03 10^3/uL (0.0-0.7); Absolute Lymphocyte Count 1.25 10^3/uL (1.2-3.4); Absolute Monocyte Count 0.39 10^3/uL (0.1-0.8); Absolute Neutrophil Count 8.55 10^3/uL (1.2-6.7); Basophils % 0.2; Eosinophils % 0.3; HCT 47.2 % (40.0-50.0); HGB 15.2 g/dL (13.5-17.5); Immature Grans % 0.4; Lymphocytes % 12.2; MCH 29.4 pg (27.0-33.0); MCHC 32.2 % (32.0-36.0); MCV 91.3 fL (80-95); MPV 10.7 fL (8.0-11.0); Monocytes % 3.8; Neutrophils % 83.1; Platelet Count 113 10^3/uL (130-400); RBC 5.17 10^6/uL (4.36-5.78); RDW 16.1 % (11.8-14.1); RDW-SD 54.8 fL; WBC 10.28 10^3/uL (4.4-10.8)
[2021-11-29 08:32] LABS: ALT 35 U/L (16-63); AST 34 U/L (15-37); Albumin 2.7 g/dL (3.4-5.0); Alkaline Phosphatase 280 U/L (46-116); Anion Gap 5.5 mmol/L (3-11); BUN 7 mg/dL (7-18); CO2 29.5 mmol/L (21.0-32.0); CREATININE 0.8 mg/dL (0.70-1.30); Calcium 7.9 mg/dL (8.5-10.1); Chloride 100 mmol/L (98-107); Glucose 255 mg/dL (74-106); Potassium 3.7 mmol/L (3.5-5.1); Sodium 135 mmol/L (136-145); Total Protein 6.6 g/dL (6.4-8.2); Troponin I < 50 ng/L (<or=60)
[2021-11-29 08:45] LABS: BE 0 mmol/L (-2-3); HCO3 24 mmol/L (22-26); pCO2 36 mmHg (35-45); pH 7.43 (7.35-7.45); pO2 53 mmHg (80-105); sO2 91 % (95-98); tCO2 21 mmol/L (23-27)
[2021-11-29 08:46] LABS: FIO2L 2 L; Site Right Radial
--- NOTE | 2021-11-29 09:14 | DI.VRAD_ITS ---
PROCEDURE INFORMATION: Exam: XR Chest Exam date and time: 11/29/2021 7:57 AM Age: 56 years old Clinical indication: Other: Overdose, unresponsive TECHNIQUE: Imaging protocol: XR of the chest. Views: 1 view. COMPARISON: CR XR PORTABLE CHEST AP 10/13/2018 8:36 AM FINDINGS: Lungs: Patchy airspace opacities in the right lung base. Subtle linear opacity in the left lung base likely represents atelectasis. Pleural spaces: Fluid present in the minor fissure. Heart/Mediastinum: Unremarkable. No cardiomegaly. Bones/joints: Unremarkable. IMPRESSION: Patchy airspace opacities in the right lung base, consistent with pneumonia in the correct clinical setting. Aspiration pneumonia is a consideration as well. Dictated and Authenticated by: Nathan Bray MD. Ordering:YASMIN Herrera MD
--- NOTE | 2021-11-29 09:18 | DI.VRAD_ITS ---
PROCEDURE INFORMATION: Exam: CT Head Without Contrast Exam date and time: 11/29/2021 8:18 AM Age: 56 years old Clinical indication: Other: Unresponsive episode, R/O CVA TECHNIQUE: Imaging protocol: Computed tomography of the head without contrast. Radiation optimization: All CT scans at this facility use at least one of these dose optimization techniques: automated exposure control; mA and/or kV adjustment per patient size (includes targeted exams where dose is matched to clinical indication); or iterative reconstruction. COMPARISON: No relevant prior studies available. FINDINGS: Brain: Normal. No hemorrhage. Unremarkable white matter. No mass effect. Cerebral ventricles: No ventriculomegaly. Paranasal sinuses: Visualized sinuses are unremarkable. No fluid levels. Mastoid air cells: Visualized mastoid air cells are well aerated. Bones/joints: Abnormal angulation of the nasal bone which may represent a fracture, age indeterminate. Soft tissues: Unremarkable. IMPRESSION: 1. No evidence of an acute intracranial process. 2. Nasal bone fracture, age indeterminate. Dictated and Authenticated by: Nathan Bray MD. Ordering:YASMIN Herrera MD
[2021-11-29] MEDS: levoFLOXacin 500 MG, levoFLOXacin 250 MG 750 MG PO (10:08)
[2021-11-29] MEDS: Albuterol/Ipratropium 3 ML UPD VIAL UPD (10:08)
[2021-11-29 10:45] LABS: Source Nasal/Nares
[2021-11-29 11:31] LABS: COVID-19 PCR POSITIVE (Negative)
[2021-11-29] MEDS: Albuterol HFA 8 GM 60 PUFF INH IH (12:01)
== END 2021-11-29 12:38 | disposition left against medical advice (07) ==
PROVIDERS: Emergency Provider Physician Assistant; PCP Internal Medicine
DX: U07.1 COVID-19 (principal); J69.0 Pneumonitis due to inhalation of food and vomit; R09.02 Hypoxemia; T40.411A Poisoning by fentanyl or fentanyl analogs, accidental (unintentional), initial encounter; R40.4 Transient alteration of awareness; R41.82 Altered mental status, unspecified; Z53.29 Procedure and treatment not carried out because of patient's decision for other reasons; F11.20 Opioid dependence, uncomplicated
CPT/HCPCS: 36416; 80053; 82805; 82962; 87635; 93005; 94640; 99291; 70450; 71045; 83735; 84484; 85025; 93010; J2310; J7620

== ENCOUNTER 2022-03-15 07:03 | Emergency (ER) | payer OTHER, SELFPAY ==
[2022-03-15] VITALS (61 sets, daily range): BP systolic 85–177; BP diastolic 35–129; PULSE 0–137; RESP 11–30; TEMP 37.7; O2SAT 87–98
--- NOTE | 2022-03-15 07:15 | DI.RAD_ITS ---
Exam(s) XR PORTABLE CHEST AP EXAM: XR PORTABLE CHEST AP CLINICAL HISTORY: overdose, concern for aspiration. TECHNIQUE: 2D digital imaging was performed. COMPARISON: CR,XR XR PORTABLE CHEST AP from 11/29/2021 FINDINGS: Single AP portable view. Heart size is upper normal. The mediastinum is not widened. There is some atelectasis in the right lung base. Scarring in the left lung base is unchanged from p rior study. No large infiltrates nor pleural effusions evident. No obvious fractures. IMPRESSION: Atelectasis in the lung bases. Probable scarring in the left lung base.The patchy right lung infiltr ates which were evident on 11/29/2021 are no longer seen. No obvious pleural effusions. DATA REPOSITORY: RADIATION DOSE DELIVERED: All CT scans at this facility use at least one of these dose optimization techniques: automated exposure control; mA and/or kV adjustment per patient size (includes targeted e xams where dose is matched to clinical indication); or iterative reconstruction.
--- NOTE | 2022-03-15 07:15 | RT.EKG_ITS ---
APPROVED REPORT Exam: Resting ECG Reason for Exam: tachycardia Patient Location: E HR:131 bpm ECG Measurements Heart Rate 131 AXIS VT 140 P 46 QRSd 85 QRS -73 QT 308 T 53 QTc 454 Conclusion Sinus tachycardia...rate> 99 Left anterior fascicular block...axis(240,-40), init forces inf Low voltage, extremity leads...all extremity leads <0.5mV sinus tachycardia, left axis, normal intervals
--- NOTE | 2022-03-15 07:22 | W.ED.GENAD ---
Discharge Plan Disposition Patient Disposition: HOME Condition: Improving Discharge Details Clinical Impression: Opioid overdose Primary Care Provider: Ole Sharma ED Provider: Elliot Benson Home Meds and New Rx's Prescriptions: No Action lamotrigine [Lamictal] 25 MG tablet 25 mg PO DAILY gabapentin 300 MG capsule 350 mg PO BID carisoprodol 350 MG tablet 350 mg PO DAILY PRN Label Comments: pt states he does not take methadone [Dolophine] 10 MG tablet 128 mg PO DAILY quetiapine [Seroquel] 300 MG tablet 1 tab PO HS venlafaxine 25 MG tablet 3 tab PO DAILY benzonatate 100 mg capsule 100 mg PO TID PRN (Reason: cough) Qty: 10 0RF Paxlovid (EUA) 150 mg x 2- 100 mg tablet See Rx Instructions .ROUTE .COMPLEX Qty: 6 0RF Rx Instructions: orally per package directions Discharge Instructions Instructions: Opioid Safety (ED) Additional Instructions: Please discuss lowering your methadone dose with your clinic as you experienced an opioid overdose today. Please return to the emergency department he develop any worsening symptoms or need any further assistance. Discharge Data Discharge Date/Time-TO BE ENTERED AT DEPARTURE: 03/15/22 10:54 Medical Decision Making <Elliot Benson MD - Last Filed: 03/15/22 10:49> 56-year-old male history of substance abuse, presents brought in by [facility] for unresponsiveness and apnea, unknown past medical history history physical limited by patient's mental status. Found to be In unresponsive in passenger side versus the car. Bagged out front, 2 doses of nasal Narcan administered while patient was still in the vehicle, started to have some spontaneous breathing and movement, however still unresponsive to painful and verbal stimuli. Moved to resuscitation bay, patient was stripped of his close placed on the monitor, persistent apnea and unresponsiveness, given 4 mg IV Narcan with response, patient's color is greatly improved is now breathing spontaneously, is speaking spontaneously, hypertensive and tachycardic now, maintaining saturations on nasal cannula. Concern for opiate overdose versus aspiration. Patient endorses taking his normal dose of methadone this morning. Consider supratherapeutic dose versus kidney dysfunction versus intentional recreational supratherapeutic dose versus concomitant fentanyl or heroin use versus less likely intracranial process such as stroke or hemorrhage. Screening labs imaging fluids disposition pending reassessment. 07: 33 patient alert and oriented spontaneous respirations tolerating secretions interactive and appropriate. Maintaining oxygenation with supplemental nasal cannula. Currently tachycardic and hypertensive likely component of opioid withdrawal given recent Narcan administration. Will dose clonidine continue with fluids antiemetics. Disposition pending mental status reassessment and labs 10: 45 patient resting comfortably saturating 92% on room air taken off of supplementation, doing better after nebs. Mental status has been stable has not become more somnolent since effective dose of Narcan. Friend at bedside will keep close eye on him today. Counseled patient and friend extensively that his clinic should reduce his methadone dose as he is likely supratherapeutic. Home care instructions and return precautions given <Sharon Clark, DO - Last Filed: 03/18/22 21:08> 56-year-old male history of substance abuse, presents brought in by [facility] [[email or web address]] for unresponsiveness and apnea, unknown past medical history history physical limited by patient's mental status. Found to be In unresponsive in passenger side versus the car. Bagged out front, 2 doses of nasal Narcan administered while patient was still in the vehicle, started to have some spontaneous breathing and movement, however still unresponsive to painful and verbal stimuli. Moved to resuscitation bay, patient was stripped of his close placed on the monitor, persistent apnea and unresponsiveness, given 4 mg IV Narcan with response, patient's color is greatly improved is now breathing spontaneously, is speaking spontaneously, hypertensive and tachycardic now, maintaining saturations on nasal cannula. Concern for opiate overdose versus aspiration. Patient endorses taking his normal dose of methadone this morning. Consider supratherapeutic dose versus kidney dysfunction versus intentional recreational supratherapeutic dose versus concomitant fentanyl or heroin use versus less likely intracranial process such as stroke or hemorrhage. Screening labs imaging fluids disposition pending reassessment. 07: 33 patient alert and oriented spontaneous respirations tolerating secretions interactive and appropriate. Maintaining oxygenation with supplemental nasal cannula. Currently tachycardic and hypertensive likely component of opioid withdrawal given recent Narcan administration. Will dose clonidine continue with fluids antiemetics. Disposition pending mental status reassessment and labs 10: 45 patient resting comfortably saturating 92% on room air taken off of supplementation, doing better after nebs. Mental status has been stable has not become more somnolent since effective dose of Narcan. Friend at bedside will keep close eye on him today. Counseled patient and friend extensively that his clinic should reduce his methadone dose as he is likely supratherapeutic. Home care instructions and return precautions given Dr. Clark Pt not seen or evaluated by me. HPI <Elliot Benson MD - Last Filed: 03/15/22 10:49> General Date/Time Provider Initiated Documentation: 03/15/22 07:19. HPI Narrative: 56-year-old male history of substance abuse, currently on methadone program, brought in by [facility] [[email or web address]], called ahead for unresponsive male, not breathing Related Data Home Medications Medication Instructions Recorded Confirmed carisoprodol 350 mg tablet 350 mg PO DAILY PRN 05/03/13 02/21/18 gabapentin 300 mg capsule 350 mg PO BID 05/03/13 02/21/18 lamotrigine 25 mg tablet (Lamictal) 25 mg PO DAILY 05/03/13 03/15/22 methadone 10 mg tablet (Dolophine) 128 mg PO DAILY 02/20/18 03/15/22 quetiapine 300 mg tablet (Seroquel) 1 tab PO HS 02/20/18 03/15/22 venlafaxine 25 mg tablet 3 tab PO DAILY 02/20/18 02/21/18 benzonatate 100 mg capsule 100 mg PO TID PRN cough #10 caps 11/29/21 nirmatrelvir 300 mg (150 mg x See Rx Instructions PO .COMPLEX #6 11/29/21 2)-ritonavir 100 mg tablet (EUA) tabs (Paxlovid 300 mg () Previous Rx's Medication Instructions Recorded benzonatate 100 mg capsule 100 mg PO TID PRN cough #10 caps 11/29/21 nirmatrelvir 300 mg (150 mg x See Rx Instructions PO .COMPLEX #6 11/29/21 2)-ritonavir 100 mg tablet (EUA) tabs (Paxlovid 300 mg () Allergies Allergy/AdvReac Type Severity Reaction Status Date / Time No Known Allergies Allergy Unverified 03/15/22 07:22 General GONZALEZ: 1 Review of Systems <Elliot Benson MD - Last Filed: 03/15/22 10:49> Narrative: Patient unresponsive PFSH <Elliot Benson MD - Last Filed: 03/15/22 10:49> All Active Problems (Updated 03/15/22 @ 10:48 by Elliot Benson MD) COVID-19 (Acute) Opioid overdose (Acute) Small bowel obstruction (Acute) Hypokalemia (Acute) Drug abuse and dependence (Acute) Opioid withdrawal (Acute) Medical History (Updated 03/15/22 @ 10:48 by Elliot Benson MD) COPD (chronic obstructive pulmonary disease) HTN (hypertension) Hyperlipemia TBI (traumatic brain injury) Surgical History (Updated 10/13/18 @ 08:26 by Sharon Clark DO) History of hernia repair Social History (Updated 10/13/18 @ 08:28 by Sharon Clark DO) Smoking/Tobacco Use Status: Current every day Tobacco Type: cigarettes Years smoked: 42 Smoking risk assessment performed?: Yes Alcohol Intake: never Drug use: Daily Substance use type: heroin Details: No longer using Heroin, Uses Fentynal every few months. - PT states that he no longer uses Fentynal Do you feel safe at home: Yes Do you feel safe in your relationship?: Yes Exam <Elliot Benson MD - Last Filed: 03/15/22 10:49> Narrative Exam Narrative: Physical Examination General: Unresponsive, apneic HEENT: Eyes closed, breakfast sandwich material in oral cavity Neck: supple, trachea midline; full ROM Chest: normal to inspection Respiratory: Apnea Cardiac: regular rate, regular rhythm, S1S2 intact, no murmurs rubs or gallops GI: abdomen soft, non-tender, non-distended; no palpable mass or hepatosplenomegaly Skin: Pale, dry Neuro: unresponsive to verbal or painful stimuli
[2022-03-15] MEDS: Ondansetron 4 MG/2 ML VIAL IVP (07:28)
[2022-03-15] MEDS: Normal Saline 1,000 ML 1000 ML IV (07:29)
[2022-03-15 07:34] LABS: BE (Venous) 2 mmol/L (-2-3); HCO3 (Venous) 28 mmol/L (23-28); O2 Sat (Venous) 81 %; TCO2 (Venous) 26 mmol/L (24-29); pCO2 (Venous) 55 mmHg (41-51); pH (Venous) 7.32 (7.31-7.41); pO2 (Venous) 46 mmHg
[2022-03-15 07:36] LABS: Abs Immature Grans 0.04 10^3/uL (0.0-0.06); Absolute Basophil Count 0.03 10^3/uL (0.0-0.2); Absolute Eosinophil Count 0.14 10^3/uL (0.0-0.7); Absolute Lymphocyte Count 1.11 10^3/uL (1.2-3.4); Absolute Monocyte Count 0.55 10^3/uL (0.1-0.8); Absolute Neutrophil Count 6.13 10^3/uL (1.2-6.7); Basophils % 0.4; Eosinophils % 1.8; HCT 39.1 % (40.0-50.0); HGB 12.3 g/dL (13.5-17.5); Immature Grans % 0.5; Lymphocytes % 13.9; MCH 27.4 pg (27.0-33.0); MCHC 31.5 % (32.0-36.0); MCV 87 fL (80-95); MPV 10.4 fL (8.0-11.0); Monocytes % 6.9; Neutrophils % 76.5; Platelet Count 143 10^3/uL (130-400); RBC 4.49 10^6/uL (4.36-5.78); RDW 14.9 % (11.8-14.1); RDW-SD 47.8 fL
[2022-03-15] MEDS: cloNIDine 0.1 MG TAB PO (08:03)
[2022-03-15 08:09] LABS: ALT 11 U/L (16-63); AST 13 U/L (15-37); Albumin 2.4 g/dL (3.4-5.0); Alkaline Phosphatase 109 U/L (46-116); Anion Gap 3.5 mmol/L (3-11); BUN 7 mg/dL (7-18); Bilirubin, Total 0.3 mg/dL (0.2-1.0); CO2 30.5 mmol/L (21.0-32.0); CREATININE 0.7 mg/dL (0.70-1.30); Calcium 8.5 mg/dL (8.5-10.1); Chloride 102 mmol/L (98-107); Glucose 208 mg/dL (74-106); Lipase 137 U/L (73-393); Potassium 4.2 mmol/L (3.5-5.1); Sodium 136 mmol/L (136-145); TSH (W/Ref FT4) 3.15 uIU/mL (0.36-3.74); Total Protein 7.1 g/dL (6.4-8.2)
[2022-03-15 08:10] LABS: INR 1.1 (0.9-1.1); PTT Activated 29.8 sec (21.0-27.5); Prothrombin Time 11.1 sec (9.3-11.0)
[2022-03-15 08:11] LABS: ETHANOL BLOOD < 3.0 mg/dL (<10); Troponin I < 50 ng/L (<or=60)
[2022-03-15] MEDS: Levalbuterol 1.25 MG/3 ML UPD VIAL UPD (09:10)
[2022-03-15] MEDS: Dexamethasone 10 MG/ML VIAL IVP (09:13)
[2022-03-15] MEDS: Ipratropium 0.5 MG/2.5 ML UPD VIAL UPD (09:31)
[2022-03-15 09:47] LABS: Bilirubin Negative (Negative); Blood Negative (Negative); Clarity Clear (Clear); Glucose Negative (Negative); Ketones Negative (Negative); Leukocyte Esterase Negative (Negative); Nitrite Negative (Negative); Specific Gravity 1.015 (1.005-1.025); Urobilinogen 0.2 EU/dL (Up TO 0.2)
[2022-03-15 10:03] LABS: *AMPHETAMINES SCREEN URINE Negative (Negative); *BARBITURATES SCREEN URINE Negative (Negative); *BENZODIAZEPINES SCREEN URINE Negative (Negative); Cannabinoids THC Negative (Negative); Cocaine Screen,Urine Negative (Negative); METHADONE URINE SCREEN Positive (Negative); OPIATES URINE SCREEN Negative (Negative); Tricyclic Antidepressants Negative (Negative)
== END 2022-03-15 10:54 | disposition home or self-care (01) ==
PROVIDERS: Emergency Provider Emergency Medicine; PCP Internal Medicine
DX: T40.2X1A Poisoning by other opioids, accidental (unintentional), initial encounter (principal); R40.4 Transient alteration of awareness; R00.0 Tachycardia, unspecified; I10 Essential (primary) hypertension; J44.9 Chronic obstructive pulmonary disease, unspecified; F17.210 Nicotine dependence, cigarettes, uncomplicated
CPT/HCPCS: 36415; 80053; 80307; 82805; 83690; 93005; 94640; 96361; 96374; 96375; 99284; 71045; 80320; 81003; 84443; 84484; 85025; 85610; 85730; 93010; 99285; J1100; J2405; J7614; J7644